=== PATIENT | female | born 1945 | race Caucasian/White ===

== ENCOUNTER 2018-02-17 17:41 | Inpatient (IN) | payer MEDICARE, MEDICAID ==
[~2018-02-17] VITALS: Ht 149.9 cm; Wt 90.9 kg
[~2018-02-17 17:41] MED LIST: ACET1TAB14 PO; ALB0.5UD IH; ALBU8HFA PO; AZIT-63 PO; DIAZ5TAB PO; PRED10TA PO
[2018-02-17] MEDS ORDERED: methylPREDNISolone sod succ 125mg/2ml vial IV ONE (18:00)
[2018-02-17] MEDS ORDERED: albuterol 2.5 MG/3 ML nebule NEB ONE (18:00)
[2018-02-17] MEDS ORDERED: ipratropium/albuterol 3ml nebule NEB ONE (18:00)
[2018-02-17 18:37] LABS: BASOPHILS % (AUTO) 0.3 % (0-1); EOSINOPHILS % (AUTO) 0.3 % (0-6); LYMPHOCYTES # (AUTO) 0.8 X10'3 (1.1-4.8); MEAN CORPUSCULAR HEMOGLOBIN 29.4 PG (27.0-31.0); MEAN CORPUSCULAR HGB CONC 33.4 % (33.0-36.5); MEAN CORPUSCULAR VOLUME 88.1 FL (78-98); MEAN PLATELET VOLUME 7.8 FL (7.4-10.4); MONOCYTES # (AUTO) 0.3 X10'3 (0-0.9); MONOCYTES % (AUTO) 3.9 % (2-12); NEUTROPHILS # (AUTO) 7.7 X10'3 (1.8-7.7); NEUTROPHILS % (AUTO) 86.5 % (42-75); PLATELET COUNT 202 X10'3 (140-440); RED BLOOD COUNT 4.77 X10'6 (4.20-5.60); RED CELL DISTRIBUTION WIDTH 14.9 % (11.5-14.5); WHITE BLOOD COUNT 8.9 X10'3 (4.5-11.0)
[2018-02-17 19:02] LABS: ALANINE AMINOTRANSFERASE 30 U/L (12-78); ALBUMIN 3.6 G/DL (3.4-5.0); ALBUMIN/GLOBULIN RATIO 1.2 (1.1-1.5); ALKALINE PHOSPHATASE 60 IU/L (46-116); ANION GAP -4 (8-16); ASPARTATE AMINO TRANSFERASE 33 U/L (10-37); BILIRUBIN,TOTAL 0.9 MG/DL (0.1-1.0); BLOOD UREA NITROGEN 28 MG/DL (7-18); BUN/CREATININE RATIO 44.4 (6.6-38.0); CALCIUM 10.2 MG/DL (8.5-10.1); CHLORIDE 104 MMOL/L (99-107); CREATININE 0.63 MG/DL (0.40-0.90); GLUCOSE 115 MG/DL (70-104); POTASSIUM 4.9 MMOL/L (3.5-5.1); SODIUM 143 MMOL/L (135-145); TOTAL PROTEIN 6.7 G/DL (6.4-8.2); eGFR > 90 ML/MIN
[2018-02-17] MEDS ORDERED: PRED5TAB PO (19:08)
[2018-02-17] MEDS ORDERED: ALB0.5UD IH (19:08)
[2018-02-17 19:11] LABS: TOTAL CARBON DIOXIDE 42.7 MMOL/L (24-32)
[2018-02-17 19:35] LABS: ABG BASE EXCESS 14.1 mmol/L (-2.0-3.0); ABG HCO3 45.6 mmol/L (22.0-26.0); ABG OXYGEN SATURATION 92.3 % (95-98); ABG PCO2 (T) 99.1 mmHg (32.0-45.0); ABG PH (T) 7.282 (7.350-7.450); ABG PO2 (T) 64.9 mmHg (83-108); ALLEN'S TEST Positive; FCOHb 1.4 % (0.5-1.5); FLOW 2 L/min; FMetHb 0.3 % (0.3-1.12); FO2Hb 90.7 % (94-100); PATIENT TEMPERATURE 37.4; TOTAL HEMOGLOBIN 14.3 G/dl (12.0-16.0)
[2018-02-17 19:49] LABS: PLATELET ESTIMATE NORMAL; TOTAL CELLS COUNTED 100
[2018-02-17] MEDS ORDERED: levoFLOXACIN-Levaquin 500mg/D5 100 ML IV ONE (20:35)
[2018-02-17] MEDS ORDERED: normal saline 1000ml 1,000 ML IV SCH (20:54)
[2018-02-17] MEDS ORDERED: acetaminophen 650mg rectal suppository RC PRN (20:55)
[2018-02-17] MEDS ORDERED: acetaminophen 325mg tablet PO PRN ×2 (20:55)
[2018-02-17] MEDS ORDERED: diphenhydrAMINE 25mg capsule PO PRN (20:55)
[2018-02-17] MEDS ORDERED: ondansetron/PF 4mg/2ml inj IV PRN (20:55)
[2018-02-17] MEDS ORDERED: albuterol 2.5 MG/3 ML nebule NEB PRN (20:55)
[2018-02-17] MEDS ORDERED: morphine 2 MG/ML inj. syringe IV PRN ×2 (20:55)
[2018-02-17] MEDS ORDERED: mag hydrox/Alum hydrox/simeth 30ml oral suspension PO PRN (20:55)
[2018-02-17] MEDS ORDERED: metoclopramide 5 mg/ml inj IV PRN (20:55)
[2018-02-17] MEDS ORDERED: bisacodyl 10mg suppository rectal RC PRN (20:55)
[2018-02-17] MEDS ORDERED: HYDROcodone/acetaminophen 10/325mg tab PO PRN (20:55)
[2018-02-17] MEDS ORDERED: HYDROmorphone 1 mg/ml syringe IV PRN ×2 (20:55)
[2018-02-17] MEDS ORDERED: diphenhydrAMINE 50 mg/ml inj IV PRN (20:55)
[2018-02-17] MEDS ORDERED: temazepam 15mg capsule PO PRN (21:00)
[2018-02-17] MEDS: acetaminophen w/codeine (60MG) #4 tablet PO SCH (21:00)
[2018-02-17 21:18] LABS: LIPASE 91 U/L (73-393); MAGNESIUM 2.1 MG/DL (1.5-2.4); PHOSPHORUS 3.2 MG/DL (2.3-4.5)
[2018-02-17 21:20] LABS: HEMOGLOBIN A1C 5.8 % (4.5-6.2)
[2018-02-17 21:55] LABS: CLARITY,URINE CLEAR (Clear); COLOR,URINE YELLOW (Yellow); GLUCOSE, URINE NEGATIVE (Neg); KETONES,URINE 15 mg/dl (Neg); LEUKOCYTE ESTERASE ,URINE NEGATIVE (Neg); NITRITES, URINE NEGATIVE (Neg); OCCULT BLOOD,URINE SMALL (Neg); PROTEIN,URINE TRACE mg/dl (Neg); UA COLLECTION TYPE STRAIGHT CATH; UROBILINOGEN,URINE 0.2 E.U/dL (0.2-1.0)
[2018-02-17 22:01] LABS: HYALINE CASTS 0-3 /LPF (NEGATIVE)
[2018-02-17 22:02] LABS: BACTERIA,URINE NONE SEEN /HPF (Neg); MUCUS STRANDS MODERATE /LPF (Neg); RBC,URINE 0-2 /HPF (0-2); SQUAMOUS EPITHELIAL CELL,UR FEW /LPF (FEW); TRANSITIONAL EPI CELLS,URINE FEW /HPF; WBC,URINE NONE SEEN /HPF (0-4)
[2018-02-17 22:15] VITALS: BP 149/77
[2018-02-17] MEDS: heparin, porcine 5000 units/ml vial SQ SCH (23:34)
[2018-02-17] MEDS: diazepam 5mg tablet PO PRN (23:34)
[2018-02-17 23:41] LABS: ABG BASE EXCESS 11.1 mmol/L (-2.0-3.0); ABG HCO3 39.9 mmol/L (22.0-26.0); ABG OXYGEN SATURATION 96.3 % (95-98); ABG PCO2 (T) 72.2 mmHg (32.0-45.0); ABG PH (T) 7.358 (7.350-7.450); ALLEN'S TEST Positive; FCOHb 0.9 % (0.5-1.5); FMetHb 0.1 % (0.3-1.12); FO2Hb 95.3 % (94-100); MINUTE VOLUME 11 L/min; PATIENT TEMPERATURE 36.7; RESPIRATORY RATE 16 b/min; RESPIRATORY RATE (OBSERVED) 28 b/min; TOTAL HEMOGLOBIN 14.1 G/dl (12.0-16.0)
[2018-02-18 03:00] VITALS: BP 168/84
[2018-02-18] MEDS: ipratropium/albuterol 3ml nebule NEB SCH ×6 (03:48→22:59)
[2018-02-18 06:00] VITALS: BP 178/94
[2018-02-18 06:41] LABS: ALANINE AMINOTRANSFERASE 28 U/L (12-78); ALBUMIN 3.6 G/DL (3.4-5.0); ALBUMIN/GLOBULIN RATIO 1.1 (1.1-1.5); ALKALINE PHOSPHATASE 61 IU/L (46-116); ANION GAP 4 (8-16); ASPARTATE AMINO TRANSFERASE 35 U/L (10-37); BLOOD UREA NITROGEN 25 MG/DL (7-18); BUN/CREATININE RATIO 32.1 (6.6-38.0); CALCIUM 9.9 MG/DL (8.5-10.1); CHLORIDE 100 MMOL/L (99-107); CHOL/HDL RATIO 2.3 (0.00-4.99); CHOLESTEROL 206 MG/DL (0-200); CREATININE 0.78 MG/DL (0.40-0.90); GLUCOSE 173 MG/DL (70-104); HDL CHOLESTEROL 88 MG/DL (35-60); LDL CHOLESTEROL 110 MG/DL (50-100); POTASSIUM 4.5 MMOL/L (3.5-5.1); SODIUM 142 MMOL/L (135-145); TOTAL PROTEIN 6.8 G/DL (6.4-8.2); TRIGLYCERIDES 61 MG/DL (20-135); eGFR 72 ML/MIN
[2018-02-18 07:26] LABS: BASOPHILS # (AUTO) 0.1 X10'3 (0-0.2); BASOPHILS % (AUTO) 1.2 % (0-1); EOSINOPHILS # (AUTO) 0.1 X10'3 (0-0.9); EOSINOPHILS % (AUTO) 0.9 % (0-6); HEMATOCRIT 42.7 % (35.0-45.0); HEMOGLOBIN 14.2 g/dl (12.0-16.0); LYMPHOCYTES # (AUTO) 0.6 X10'3 (1.1-4.8); LYMPHOCYTES % (AUTO) 7.4 % (21-51); MEAN CORPUSCULAR HGB CONC 33.4 % (33.0-36.5); MEAN CORPUSCULAR VOLUME 87.1 FL (78-98); MEAN PLATELET VOLUME 7.5 FL (7.4-10.4); MONOCYTES % (AUTO) 0.5 % (2-12); NEUTROPHILS # (AUTO) 7.8 X10'3 (1.8-7.7); PLATELET COUNT 198 X10'3 (140-440); RED CELL DISTRIBUTION WIDTH 14.4 % (11.5-14.5); WHITE BLOOD COUNT 8.6 X10'3 (4.5-11.0)
[2018-02-18] MEDS: furosemide 40mg/4ml inj IV SCH (07:28)
[2018-02-18] MEDS: famotidine 20mg tablet PO SCH ×2 (07:29→20:00)
[2018-02-18] MEDS: docusate sod 100mg capsule PO SCH ×2 (07:29→22:29)
[2018-02-18] MEDS: heparin, porcine 5000 units/ml vial SQ SCH ×2 (07:33→16:16)
[2018-02-18] MEDS: diazepam 5mg tablet PO PRN ×2 (07:39→13:54)
[2018-02-18] MEDS ORDERED: CefTRIAXone/D5W-Rocephin 1gm 50 ML IV SCH (08:00)
[2018-02-18] MEDS ORDERED: azithromycin/NS 500mg/250ml 250 ML IV SCH (08:00)
[2018-02-18] MEDS ORDERED: methylPREDNISolone sod succ 125mg/2ml vial IV SCH (08:00)
[2018-02-18] MEDS: acetaminophen w/codeine (60MG) #4 tablet PO SCH ×4 (08:00→21:00)
[2018-02-18] MEDS: piperacillin/tazo 3.375gm/50ml 50 ML IV SCH ×3 (09:10→20:00)
[2018-02-18 11:00] VITALS: BP 166/97
[2018-02-18] MEDS: levoFLOXACIN-Levaquin 750MG/D5 150 ML IV SCH (11:36)
[2018-02-18 15:00] VITALS: BP 145/71
[2018-02-18] MEDS: methylPREDNISolone sod succ 125mg/2ml vial IV SCH (16:16)
[2018-02-18] MEDS: vancomycin/NS 1 GM ADD-VANTAGE 250 ML IV SCH ×2 (16:56→19:00)
[2018-02-18] MEDS: lisinopril 5mg tablet PO SCH (16:56)
[2018-02-18] MEDS: diltiazem CD 120mg capsule (once-daily) PO SCH (16:56)
[2018-02-18 19:00] VITALS: BP 157/89
[2018-02-18 23:00] VITALS: BP 125/71
[2018-02-19] MEDS: piperacillin/tazo 3.375gm/50ml 50 ML IV SCH ×4 (02:00→20:14)
[2018-02-19] MEDS: ipratropium/albuterol 3ml nebule NEB SCH ×6 (02:52→22:53)
[2018-02-19 03:00] VITALS: BP 169/137
[2018-02-19] MEDS: vancomycin inj 1,250 MG in normal saline 250ml IV soln 250 ML IV SCH ×2 (04:14→17:28)
[2018-02-19] MEDS: methylPREDNISolone sod succ 125mg/2ml vial IV SCH ×3 (04:15→16:59)
[2018-02-19] MEDS: heparin, porcine 5000 units/ml vial SQ SCH ×3 (04:15→16:00)
[2018-02-19 05:41] LABS: BASOPHILS # (AUTO) 0.1 X10'3 (0-0.2); BASOPHILS % (AUTO) 1.2 % (0-1); EOSINOPHILS # (AUTO) 0.1 X10'3 (0-0.9); EOSINOPHILS % (AUTO) 0.6 % (0-6); HEMATOCRIT 42.5 % (35.0-45.0); HEMOGLOBIN 14.5 g/dl (12.0-16.0); LYMPHOCYTES # (AUTO) 0.6 X10'3 (1.1-4.8); LYMPHOCYTES % (AUTO) 4.5 % (21-51); MEAN CORPUSCULAR HEMOGLOBIN 29.5 PG (27.0-31.0); MEAN CORPUSCULAR HGB CONC 34.1 % (33.0-36.5); MEAN CORPUSCULAR VOLUME 86.5 FL (78-98); MEAN PLATELET VOLUME 8.2 FL (7.4-10.4); MONOCYTES # (AUTO) 0.3 X10'3 (0-0.9); MONOCYTES % (AUTO) 2.3 % (2-12); NEUTROPHILS # (AUTO) 11.5 X10'3 (1.8-7.7); NEUTROPHILS % (AUTO) 91.4 % (42-75); PLATELET COUNT 212 X10'3 (140-440); RED BLOOD COUNT 4.91 X10'6 (4.20-5.60); RED CELL DISTRIBUTION WIDTH 14.6 % (11.5-14.5); WHITE BLOOD COUNT 12.6 X10'3 (4.5-11.0)
[2018-02-19 06:00] VITALS: BP 143/89
[2018-02-19 06:13] LABS: ALANINE AMINOTRANSFERASE 24 U/L (12-78); ALBUMIN 3.3 G/DL (3.4-5.0); ALBUMIN/GLOBULIN RATIO 1.1 (1.1-1.5); ALKALINE PHOSPHATASE 60 IU/L (46-116); ANION GAP 5 (8-16); ASPARTATE AMINO TRANSFERASE 34 U/L (10-37); BILIRUBIN,TOTAL 0.8 MG/DL (0.1-1.0); BLOOD UREA NITROGEN 27 MG/DL (7-18); BUN/CREATININE RATIO 34.2 (6.6-38.0); CALCIUM 10.4 MG/DL (8.5-10.1); CHLORIDE 99 MMOL/L (99-107); CREATININE 0.79 MG/DL (0.40-0.90); GLUCOSE 188 MG/DL (70-104); POTASSIUM 3.3 MMOL/L (3.5-5.1); SODIUM 142 MMOL/L (135-145); TOTAL CARBON DIOXIDE 38.1 MMOL/L (24-32); TOTAL PROTEIN 6.4 G/DL (6.4-8.2); eGFR 71 ML/MIN
[2018-02-19] MEDS: acetaminophen w/codeine (60MG) #4 tablet PO SCH ×3 (08:00→17:00)
[2018-02-19] MEDS: diltiazem CD 120mg capsule (once-daily) PO SCH (08:30)
[2018-02-19] MEDS: levoFLOXACIN-Levaquin 750MG/D5 150 ML IV SCH (08:30)
[2018-02-19] MEDS: lisinopril 5mg tablet PO SCH (08:30)
[2018-02-19] MEDS: atorvastatin 20mg tablet PO SCH (08:30)
[2018-02-19] MEDS: diazepam 5mg tablet PO PRN ×2 (08:30→21:11)
[2018-02-19] MEDS: docusate sod 100mg capsule PO SCH ×2 (08:30→20:14)
[2018-02-19] MEDS: famotidine 20mg tablet PO SCH ×2 (08:30→20:14)
[2018-02-19] MEDS: furosemide 40mg/4ml inj IV SCH (08:31)
[2018-02-19 11:00] VITALS: BP 124/64
[2018-02-19] MEDS ORDERED: magnesium 4gm in 100ml NS 100 ML IV PRN (12:25)
[2018-02-19] MEDS ORDERED: potassium Cl 40MEQ/NS 500ml 500 ML IV PRN ×2 (12:25)
[2018-02-19] MEDS ORDERED: magnesium Cl slow-release 64mg tablet PO PRN (12:25)
[2018-02-19] MEDS ORDERED: potassium Cl 20 mEq SR tablet PO PRN (12:25)
[2018-02-19] MEDS: potassium Cl 20 mEq SR tablet PO PRN ×2 (12:40→20:14)
[2018-02-19 15:00] VITALS: BP 113/65
[2018-02-19 19:00] VITALS: BP 146/85
[2018-02-19] MEDS: lactobacillus rhamnosus 10,000 MMU CELLS/CAPSULE PO SCH (20:14)
[2018-02-19 23:00] VITALS: BP 122/62
[2018-02-20] MEDS: potassium Cl 20 mEq SR tablet PO PRN ×4 (00:22→19:50)
[2018-02-20] MEDS: methylPREDNISolone sod succ 125mg/2ml vial IV SCH ×3 (00:22→15:41)
[2018-02-20] MEDS: heparin, porcine 5000 units/ml vial SQ SCH ×3 (00:22→15:42)
[2018-02-20] MEDS: piperacillin/tazo 3.375gm/50ml 50 ML IV SCH ×4 (02:23→19:50)
[2018-02-20] MEDS: ipratropium/albuterol 3ml nebule NEB SCH ×6 (02:50→23:37)
[2018-02-20 03:00] VITALS: BP 125/70
[2018-02-20 05:50] LABS: BASOPHILS # (AUTO) 0.1 X10'3 (0-0.2); BASOPHILS % (AUTO) 0.4 % (0-1); EOSINOPHILS % (AUTO) 0 % (0-6); HEMATOCRIT 42.3 % (35.0-45.0); HEMOGLOBIN 14.4 g/dl (12.0-16.0); LYMPHOCYTES # (AUTO) 0.5 X10'3 (1.1-4.8); LYMPHOCYTES % (AUTO) 3.2 % (21-51); MEAN CORPUSCULAR HEMOGLOBIN 29.5 PG (27.0-31.0); MEAN CORPUSCULAR VOLUME 86.9 FL (78-98); MEAN PLATELET VOLUME 8.1 FL (7.4-10.4); MONOCYTES # (AUTO) 0.3 X10'3 (0-0.9); MONOCYTES % (AUTO) 1.9 % (2-12); NEUTROPHILS # (AUTO) 13.6 X10'3 (1.8-7.7); NEUTROPHILS % (AUTO) 94.5 % (42-75); PLATELET COUNT 198 X10'3 (140-440); RED BLOOD COUNT 4.87 X10'6 (4.20-5.60); RED CELL DISTRIBUTION WIDTH 14.6 % (11.5-14.5); WHITE BLOOD COUNT 14.4 X10'3 (4.5-11.0)
[2018-02-20 06:00] VITALS: BP 112/74
[2018-02-20 06:17] LABS: ALANINE AMINOTRANSFERASE 28 U/L (12-78); ALBUMIN 3.3 G/DL (3.4-5.0); ALBUMIN/GLOBULIN RATIO 1.1 (1.1-1.5); ALKALINE PHOSPHATASE 53 IU/L (46-116); ANION GAP 7 (8-16); ASPARTATE AMINO TRANSFERASE 22 U/L (10-37); BILIRUBIN,TOTAL 1.1 MG/DL (0.1-1.0); BLOOD UREA NITROGEN 31 MG/DL (7-18); BUN/CREATININE RATIO 27.2 (6.6-38.0); CALCIUM 9.4 MG/DL (8.5-10.1); CHLORIDE 102 MMOL/L (99-107); CREATININE 1.14 MG/DL (0.40-0.90); GLUCOSE 195 MG/DL (70-104); POTASSIUM 3.4 MMOL/L (3.5-5.1); SODIUM 146 MMOL/L (135-145); TOTAL CARBON DIOXIDE 36.7 MMOL/L (24-32); TOTAL PROTEIN 6.2 G/DL (6.4-8.2); eGFR 47 ML/MIN
[2018-02-20] MEDS: levoFLOXACIN-Levaquin 750MG/D5 150 ML IV SCH (07:45)
[2018-02-20] MEDS: diltiazem CD 120mg capsule (once-daily) PO SCH (07:49)
[2018-02-20] MEDS: lisinopril 5mg tablet PO SCH (07:49)
[2018-02-20] MEDS: atorvastatin 20mg tablet PO SCH (07:50)
[2018-02-20] MEDS: lactobacillus rhamnosus 10,000 MMU CELLS/CAPSULE PO SCH ×2 (07:50→19:51)
[2018-02-20] MEDS: docusate sod 100mg capsule PO SCH ×2 (07:51→19:51)
[2018-02-20] MEDS: famotidine 20mg tablet PO SCH ×2 (07:51→19:51)
[2018-02-20] MEDS: furosemide 40mg/4ml inj IV SCH (07:52)
[2018-02-20] MEDS: magnesium hydroxide 30ml (MOM) UD suspension PO PRN ×2 (08:02→19:51)
[2018-02-20] MEDS: HYDROcodone/acetaminophen 5mg/325mg tablet PO PRN (10:06)
[2018-02-20 11:00] VITALS: BP 138/60
[2018-02-20 11:15] LABS: ABG BASE EXCESS 11.9 mmol/L (-2.0-3.0); ABG HCO3 36.5 mmol/L (22.0-26.0); ABG OXYGEN SATURATION 93.2 % (95-98); ABG PCO2 (T) 46.3 mmHg (32.0-45.0); ABG PH (T) 7.515 (7.350-7.450); ABG PO2 (T) 61.6 mmHg (83-108); ALLEN'S TEST Positive; FCOHb 0.7 % (0.5-1.5); FLOW 2 L/min; FMetHb 0.1 % (0.3-1.12); FO2Hb 92.5 % (94-100); TOTAL HEMOGLOBIN 15.6 G/dl (12.0-16.0)
[2018-02-20 15:00] VITALS: BP 136/71
[2018-02-20] MEDS: vancomycin inj 1,250 MG in normal saline 250ml IV soln 250 ML IV SCH (16:30)
[2018-02-20] MEDS ORDERED: diltiazem 30mg tablet PO ONE (18:00)
[2018-02-20 19:00] VITALS: BP 120/67
[2018-02-20 23:00] VITALS: BP 138/66
[2018-02-21] MEDS: diazepam 5mg tablet PO PRN (00:58)
[2018-02-21] MEDS: heparin, porcine 5000 units/ml vial SQ SCH ×3 (00:59→16:29)
[2018-02-21] MEDS: methylPREDNISolone sod succ 125mg/2ml vial IV SCH ×4 (00:59→20:10)
[2018-02-21] MEDS: piperacillin/tazo 3.375gm/50ml 50 ML IV SCH ×4 (02:06→20:10)
[2018-02-21 02:31] LABS: ABG BASE EXCESS 10.7 mmol/L (-2.0-3.0); ABG HCO3 35.7 mmol/L (22.0-26.0); ABG OXYGEN SATURATION 92.8 % (95-98); ABG PCO2 (T) 49.6 mmHg (32.0-45.0); ABG PH (T) 7.478 (7.350-7.450); ABG PO2 (T) 64.4 mmHg (83-108); FCOHb 0.4 % (0.5-1.5); FLOW 1 L/min; FMetHb 0.1 % (0.3-1.12); FO2Hb 92.3 % (94-100); PATIENT TEMPERATURE 37.6; RESPIRATORY RATE (OBSERVED) 26 b/min; TOTAL HEMOGLOBIN 14.5 G/dl (12.0-16.0)
[2018-02-21 03:00] VITALS: BP 119/62
[2018-02-21 04:07] LABS: ALANINE AMINOTRANSFERASE 24 U/L (12-78); ALBUMIN 3.3 G/DL (3.4-5.0); ALBUMIN/GLOBULIN RATIO 1.1 (1.1-1.5); ALKALINE PHOSPHATASE 51 IU/L (46-116); ANION GAP 5 (8-16); ASPARTATE AMINO TRANSFERASE 22 U/L (10-37); BLOOD UREA NITROGEN 31 MG/DL (7-18); CALCIUM 9.4 MG/DL (8.5-10.1); CHLORIDE 102 MMOL/L (99-107); CREATININE 1.07 MG/DL (0.40-0.90); GLUCOSE 225 MG/DL (70-104); POTASSIUM 3.4 MMOL/L (3.5-5.1); SODIUM 144 MMOL/L (135-145); TOTAL CARBON DIOXIDE 37.5 MMOL/L (24-32); TOTAL PROTEIN 6.2 G/DL (6.4-8.2); eGFR 50 ML/MIN
[2018-02-21 05:49] LABS: BASOPHILS % (AUTO) 0 % (0-1); EOSINOPHILS % (AUTO) 0 % (0-6); LYMPHOCYTES # (AUTO) 0.3 X10'3 (1.1-4.8); LYMPHOCYTES % (AUTO) 2.4 % (21-51); MEAN CORPUSCULAR HEMOGLOBIN 29.1 PG (27.0-31.0); MEAN CORPUSCULAR HGB CONC 33.4 % (33.0-36.5); MEAN CORPUSCULAR VOLUME 87.1 FL (78-98); MEAN PLATELET VOLUME 8.3 FL (7.4-10.4); MONOCYTES # (AUTO) 0.2 X10'3 (0-0.9); MONOCYTES % (AUTO) 1.9 % (2-12); NEUTROPHILS # (AUTO) 12.5 X10'3 (1.8-7.7); NEUTROPHILS % (AUTO) 95.7 % (42-75); PLATELET COUNT 168 X10'3 (140-440); RED BLOOD COUNT 4.82 X10'6 (4.20-5.60); RED CELL DISTRIBUTION WIDTH 15.1 % (11.5-14.5); WHITE BLOOD COUNT 13.1 X10'3 (4.5-11.0)
[2018-02-21 06:00] VITALS: BP 140/77
[2018-02-21] MEDS: albuterol 2.5 MG/3 ML nebule NEB SCH ×2 (08:23→20:10)
[2018-02-21] MEDS: docusate sod 100mg capsule PO SCH ×2 (08:38→20:00)
[2018-02-21] MEDS: famotidine 20mg tablet PO SCH ×2 (08:38→20:00)
[2018-02-21] MEDS: atorvastatin 20mg tablet PO SCH (08:39)
[2018-02-21] MEDS: lisinopril 5mg tablet PO SCH (08:39)
[2018-02-21] MEDS: diltiazem CD 180mg cap (once-daily) PO SCH (08:39)
[2018-02-21] MEDS: lactobacillus rhamnosus 10,000 MMU CELLS/CAPSULE PO SCH ×2 (08:39→20:00)
[2018-02-21] MEDS: potassium Cl 20 mEq SR tablet PO PRN ×3 (08:46→22:21)
[2018-02-21 11:00] VITALS: BP 114/61
[2018-02-21 15:00] VITALS: BP 139/71
[2018-02-21] MEDS: vancomycin inj 1,250 MG in normal saline 250ml IV soln 250 ML IV SCH (16:28)
[2018-02-21 19:00] VITALS: BP 132/75
[2018-02-21 23:00] VITALS: BP 129/75
[2018-02-22] MEDS: heparin, porcine 5000 units/ml vial SQ SCH ×2 (00:31→08:36)
[2018-02-22] MEDS: piperacillin/tazo 3.375gm/50ml 50 ML IV SCH ×2 (01:59→08:00)
[2018-02-22 03:00] VITALS: BP 121/67
[2018-02-22] MEDS: HYDROcodone/acetaminophen 5mg/325mg tablet PO PRN (03:45)
[2018-02-22 06:52] LABS: BASOPHILS % (AUTO) 0 % (0-1); EOSINOPHILS % (AUTO) 0 % (0-6); HEMATOCRIT 41.7 % (35.0-45.0); LYMPHOCYTES # (AUTO) 0.6 X10'3 (1.1-4.8); LYMPHOCYTES % (AUTO) 4.8 % (21-51); MEAN CORPUSCULAR HEMOGLOBIN 29.1 PG (27.0-31.0); MEAN CORPUSCULAR HGB CONC 33.5 % (33.0-36.5); MEAN CORPUSCULAR VOLUME 86.8 FL (78-98); MEAN PLATELET VOLUME 8.3 FL (7.4-10.4); MONOCYTES # (AUTO) 0.2 X10'3 (0-0.9); MONOCYTES % (AUTO) 1.6 % (2-12); NEUTROPHILS # (AUTO) 12.6 X10'3 (1.8-7.7); NEUTROPHILS % (AUTO) 93.6 % (42-75); PLATELET COUNT 165 X10'3 (140-440); RED CELL DISTRIBUTION WIDTH 14.5 % (11.5-14.5); WHITE BLOOD COUNT 13.4 X10'3 (4.5-11.0)
[2018-02-22 06:52] LABS: ALANINE AMINOTRANSFERASE 29 U/L (12-78); ALBUMIN 3.2 G/DL (3.4-5.0); ALBUMIN/GLOBULIN RATIO 1.1 (1.1-1.5); ALKALINE PHOSPHATASE 50 IU/L (46-116); ANION GAP 5 (8-16); ASPARTATE AMINO TRANSFERASE 23 U/L (10-37); BLOOD UREA NITROGEN 33 MG/DL (7-18); BUN/CREATININE RATIO 37.1 (6.6-38.0); CALCIUM 9.5 MG/DL (8.5-10.1); CHLORIDE 104 MMOL/L (99-107); CREATININE 0.89 MG/DL (0.40-0.90); GLUCOSE 193 MG/DL (70-104); SODIUM 145 MMOL/L (135-145); TOTAL CARBON DIOXIDE 36.2 MMOL/L (24-32); TOTAL PROTEIN 6.1 G/DL (6.4-8.2); eGFR 62 ML/MIN
[2018-02-22 07:01] LABS: POTASSIUM 3.9 MMOL/L (3.5-5.1)
[2018-02-22] MEDS ORDERED: levoFLOXACIN-Levaquin 750MG/D5 150 ML IV SCH (08:00)
[2018-02-22] MEDS: docusate sod 100mg capsule PO SCH (08:00)
[2018-02-22] MEDS: albuterol 2.5 MG/3 ML nebule NEB SCH (08:07)
[2018-02-22] MEDS: atorvastatin 20mg tablet PO SCH (08:34)
[2018-02-22] MEDS: diltiazem CD 180mg cap (once-daily) PO SCH (08:34)
[2018-02-22] MEDS: lactobacillus rhamnosus 10,000 MMU CELLS/CAPSULE PO SCH (08:34)
[2018-02-22] MEDS: lisinopril 5mg tablet PO SCH (08:35)
[2018-02-22] MEDS: famotidine 20mg tablet PO SCH (08:35)
[2018-02-22] MEDS: methylPREDNISolone sod succ 125mg/2ml vial IV SCH (08:36)
[2018-02-23] MEDS ORDERED: VANCOMYCIN LEVEL IV ONE (16:30)
== END 2018-02-22 16:55 | DRG 291 ==
LOC: ER 17:42 → ED HOLD 20:54 → PCU 3S 22:23
PROVIDERS: ADMIT Family Medicine; ATTEND Family Medicine
PROC: 5A09357 Assistance with Respiratory Ventilation, Less than 24 Consecutive Hours, Continuous Positive Airway Pressure (ICD-10-PCS; principal; 2018-02-17)
PROC: 5A09357 Assistance with Respiratory Ventilation, Less than 24 Consecutive Hours, Continuous Positive Airway Pressure (ICD-10-PCS; 2018-02-18)
PROC: 5A09357 Assistance with Respiratory Ventilation, Less than 24 Consecutive Hours, Continuous Positive Airway Pressure (ICD-10-PCS; 2018-02-19)
PROC: 5A09357 Assistance with Respiratory Ventilation, Less than 24 Consecutive Hours, Continuous Positive Airway Pressure (ICD-10-PCS; 2018-02-21)
DX: I11.0 Hypertensive heart disease with heart failure (principal); J96.21 Acute and chronic respiratory failure with hypoxia; J96.22 Acute and chronic respiratory failure with hypercapnia; N17.0 Acute kidney failure with tubular necrosis; J18.1 Lobar pneumonia, unspecified organism; J44.1 Chronic obstructive pulmonary disease with (acute) exacerbation; E87.4 Mixed disorder of acid-base balance; J44.0 Chronic obstructive pulmonary disease with (acute) lower respiratory infection; Z68.41 Body mass index [BMI] 40.0-44.9, adult; I50.33 Acute on chronic diastolic (congestive) heart failure; E87.6 Hypokalemia; I08.3 Combined rheumatic disorders of mitral, aortic and tricuspid valves; E78.00 Pure hypercholesterolemia, unspecified; E78.5 Hyperlipidemia, unspecified; F17.210 Nicotine dependence, cigarettes, uncomplicated; I25.10 Atherosclerotic heart disease of native coronary artery without angina pectoris; Z99.81 Dependence on supplemental oxygen; Z88.2 Allergy status to sulfonamides; Z88.8 Allergy status to other drugs, medicaments and biological substances; Z91.018 Allergy to other foods; Z79.899 Other long term (current) drug therapy; Z81.8 Family history of other mental and behavioral disorders
CPT/HCPCS: 36415; 36600; 70450; 71045; 71250; 80053; 80061; 81001; 82803; 82948; 83036; 83605; 83690; 83735; 83880; 84100; 85018; 85025; 87040; 87070; 93005; 93306; 93971; 94640; 94660; 94760; 96374; 96375; 97110; 97116; 97162; 97530; 99285; A6213; A6250; J0456; J0696; J1644; J1940; J1956; J2543; J2930; J3370; J7030

== ENCOUNTER 2020-07-15 11:48 | Emergency (ER) | payer MEDICARE, MEDICAID ==
[~2020-07-15] VITALS: Ht 144.8 cm; Wt 72.7 kg
[~2020-07-15 11:48] MED LIST changes: -ALB0.5UD IH; -ALBU8HFA PO; -AZIT-63 PO; +DILT240C94 PO; +DOCU-165 PO; +FURO40TA4 PO; +MULT-384 PO; +PRAV80TA3 PO; -PRED10TA PO; +PRED20TA PO
[2020-07-15 15:14] LABS: BASOPHILS # (AUTO) 0.1 X10'3 (0-0.2); BASOPHILS % (AUTO) 0.7 % (0-1); EOSINOPHILS # (AUTO) 0.3 X10'3 (0-0.9); HEMATOCRIT 33.5 % (35.0-45.0); HEMOGLOBIN 10.9 g/dl (12.0-16.0); LYMPHOCYTES # (AUTO) 1.5 X10'3 (1.1-4.8); LYMPHOCYTES % (AUTO) 18.5 % (21-51); MEAN CORPUSCULAR HGB CONC 32.6 g/dL (33.0-36.5); MEAN PLATELET VOLUME 7.5 FL (7.4-10.4); MONOCYTES # (AUTO) 0.6 X10'3 (0-0.9); MONOCYTES % (AUTO) 7.1 % (2-12); NEUTROPHILS # (AUTO) 5.7 X10'3 (1.8-7.7); NEUTROPHILS % (AUTO) 69.7 % (42-75); PLATELET COUNT 279 X10'3 (140-440); RED BLOOD COUNT 3.76 X10'6 (4.20-5.60); RED CELL DISTRIBUTION WIDTH 14.2 % (11.5-14.5); WHITE BLOOD COUNT 8.1 X10'3 (4.5-11.0)
[2020-07-15 15:24] LABS: ALANINE AMINOTRANSFERASE 46 U/L (12-78); ALBUMIN 3.2 G/DL (3.4-5.0); ALKALINE PHOSPHATASE 167 IU/L (46-116); ANION GAP 1 (8-16); ASPARTATE AMINO TRANSFERASE 45 U/L (10-37); BILIRUBIN,TOTAL 0.4 MG/DL (0.1-1.0); BLOOD UREA NITROGEN 14 MG/DL (7-18); BUN/CREATININE RATIO 21.5 (6.6-38.0); CALCIUM 10.1 MG/DL (8.5-10.1); CHLORIDE 103 MMOL/L (99-107); CREATININE 0.65 MG/DL (0.40-0.90); GLUCOSE 94 MG/DL (70-104); POTASSIUM 4.1 MMOL/L (3.5-5.1); SODIUM 145 MMOL/L (135-145); TOTAL PROTEIN 6.5 G/DL (6.4-8.2); eGFR 89 ML/MIN
[2020-07-15 15:26] LABS: TOTAL CARBON DIOXIDE 40.7 MMOL/L (24-32)
[2020-07-15 17:00] LABS: ABG BASE EXCESS 9.9 mmol/L (-2.0-2.0); ABG HCO3 37.2 mmol/L (22.0-26.0); ABG OXYGEN SATURATION 98.7 % (94-97); ABG PCO2 (T) 66.6 mmHg (32.0-45.0); ABG PO2 (T) 136.9 mmHg (75.0-100.0); ALLEN'S TEST POSITIVE; FCOHb 0.4 % (0.0-3.9); FLOW 2 L/min; FMetHb 0.3 % (0.0-1.5); TOTAL HEMOGLOBIN 10.6 G/dl (12.0-16.0)
[2020-07-15 17:40] VITALS: BP 101/51
[2020-07-15] MEDS ORDERED: CEPH250T PO (18:11)
--- NOTE | 2020-07-15 18:21 | NUR ---
SON AT BEDSIDE LIVES WITH SON PLAN TO GO HOME O2 DECREASE TO 1. PM
== END 2020-07-15 18:29 | disposition home or self-care (01) ==
LOC: ER 11:50
DX: L02.416 Cutaneous abscess of left lower limb (principal); L03.116 Cellulitis of left lower limb; E87.2 Acidosis; I11.0 Hypertensive heart disease with heart failure; I50.9 Heart failure, unspecified; E78.00 Pure hypercholesterolemia, unspecified; J44.9 Chronic obstructive pulmonary disease, unspecified; Z88.2 Allergy status to sulfonamides; Z88.8 Allergy status to other drugs, medicaments and biological substances; Z79.2 Long term (current) use of antibiotics; Z79.899 Other long term (current) drug therapy
CPT/HCPCS: 36415; 36600; 73502; 80053; 82803; 85018; 85025; 85610; 93922; 93926; 93971; 99285

== ENCOUNTER 2021-11-07 08:13 | Emergency (ER) | payer MEDICARE, MEDICAID ==
[~2021-11-07] VITALS: Ht 149.9 cm; Wt 77.0 kg
[~2021-11-07 08:13] MED LIST changes: -PRED20TA PO
[2021-11-07 08:35] VITALS: BP 161/86
[2021-11-07] MEDS ORDERED: APIX5TAB3 PO (09:25)
[2021-11-07] MEDS ORDERED: ACET-2 PO (09:26)
== END 2021-11-07 09:15 | disposition left against medical advice (07) ==
LOC: ER 08:13
DX: Z76.0 Encounter for issue of repeat prescription (principal); R50.9 Fever, unspecified; I50.9 Heart failure, unspecified; I11.0 Hypertensive heart disease with heart failure; J44.9 Chronic obstructive pulmonary disease, unspecified; E78.00 Pure hypercholesterolemia, unspecified; Z88.2 Allergy status to sulfonamides; Z88.8 Allergy status to other drugs, medicaments and biological substances; Z79.899 Other long term (current) drug therapy
CPT/HCPCS: 99282